=== PATIENT | female | born 1945 | race Caucasian/White ===

== ENCOUNTER → 2016-09-23 | Outpatient (CLI) | payer OTHER ==
[~2016-09-23] MED LIST: ALBUTEROL17 GM; ALLEGRA PO; ATIVAN PO; BENEFIBER; BENTYL20 MG PO; CELEXA PO; CIPRO PO; CITALOPRAM HBR40 MG PO; CLARITIN10 M2 PO; CLARITIN10 MG PO; DICYCLOMINE HCL20 MG PO; ESTRACE PO; ESTRACE42.5 GM; HALCION0.125 MG PO; LISINOPRIL PO; LISINOPRIL10 MG PO; LODINE PO; MOBIC PO; OPTIVE EYE DROPS5 ML; OYSTER CALCIUM500 MG PO; PERIDEX480 ML; PERIDEX480 ML PO; REQUIP0.25 MG PO; SULAR PO; TRAMADOL HCL50 M2; TRAMADOL HCL50 M2 PO; TRIAZOLAM0.25 MG PO; ULTRAM PO; VITAMIN C PO; VITAMIN D; VITAMIN D250000 UNIT PO; VITAMIN D400 UNI2; VITAMIN D50000 UNIT PO; ZANTAC PO; ZANTAC300 MG PO; [UNRECOGNIZED DRUG - OTHER]
--- NOTE | ~2016-09-23 | CT57 ---
[facility] A Service of [facility] & [facility] RADIOLOGY TEXT RESULTS PATIENT: ABRAHAM MILLS LOCATION: [facility] : 44 UNIT #: [id number] AGE: [address]: Surya Pandya MD SEX: F ORDER DR: [id number] [facility] [address] [place], [place] [address] [id number] O MR#: [id number] Acc #: [id number] NAME: ABRAHAM MILLS. : 1945 SEX: F STUDY DATE/TIME: 09/23/2016 10:34 UNIT: [facility] ROOM: STUDY DESCRIPTION: CT Chest Wo Cont Attending Physician: Surya Pandya M.D. Referring Physician: Suray Pandya M.D. Ordering Physician: Surya Pandya M.D. Primary Care Physician: Surya Pandya M.D. MEDICAL IMAGING REPORT This report is preliminary unless electronic signature is present EXAM High-resolution chest CT HISTORY Abnormal chest radiograph performed at the doctor's office on September 02, 2016 which reportedly showed a left lower lobe density. TECHNIQUE Axial CT imaging was obtained through the thorax per recent high-resolution protocol. This CT exam was performed with one or more of the following radiation dose reduction techniques: automatic exposure control, adjustment of mA and/or kV according to patient size, and iterative reconstruction. FINDINGS This patient has background emphysematous changes. There are areas of consolidation identified within the lung bases bilaterally which are favored to represent biapical scarring. On the left, this measures up to 1.4 cm and on the right, this measures up to about 2.4 cm. Some additional areas of nodularity seen more inferiorly within the right upper lobe. Single largest area measures up to about to 7 mm in size. There is some pleural-based scarring identified within the left lower lobe superior segment. There is some consolidation identified within the right middle lobe and lingula. There are also some tree-in-bud infiltrates, finding is nonspecific but can be seen in the setting of processes, such as atypical microbacterial infection. Additional patchy areas of consolidation are seen within the right lower lobe, again this may simply reflect some additional scarring. Patient has evidence of prior granulomatous disease. There is no evidence of air trapping, and certainly no evidence of chronic interstitial lung disease. [facility] A Service of [facility] RADIOLOGY TEXT RESULTS PATIENT: ABRAHAM MILLS LOCATION: [facility] : 43 UNIT #: [id number] AGE: [address]: Surya Pandya MD SEX: F ORDER DR: Thyroid gland appears unremarkable, trachea and esophagus are within normal limits. There is no pleural or pericardial effusion. Thoracic aorta measures within normal size limits. Main pulmonary artery also measures within normal size and there are coronary artery calcifications. There is a prominent subcarinal lymph node. Precarinal lymph node measuring up to about 9 mm in short-axis dimensions. Remainder of the mediastinal lymph nodes really do not appear pathologically enlarged. Images through the upper abdomen demonstrate changes of prior cholecystectomy. I do not see any aggressive osseous abnormalities. There are erosive changes seen within the upper lumbar spine. IMPRESSION 1. Background emphysematous changes without convincing evidence of chronic interstitial lung disease. 2. Patient reportedly had a left lower lobe density on recent chest radiograph at her primary care physician's office. This is not clearly identified on this study. Patient does have patchy areas of consolidation at the lung apices bilaterally, as well as within the right lower lobe and the within the right middle lobe and lingula. I suspect these reflect a combination of chronic scarring, as well as perhaps some superimposed infectious or inflammatory infiltrates. However, given background emphysematous changes, I suggest short-term CT followup in 3 months. There is also mildly prominent precarinal lymph node which can be reassessed at that time. The remainder of mediastinal lymph nodes again really do not appear pathologically enlarged. Please see the body of the report for any other additional incidental findings. Dictated by... Octavia Foley M.D. THIS IS AN ELECTRONICALLY VERIFIED REPORT Octavia Foley M.D. at 09/24/2016 8:17 AM AFF/pcl TD: 09/23/2016 20:25 JOB #: [id number] MEDICAL IMAGING REPORT Page 1 of 1 COPY
--- NOTE | ~2016-09-23 | MR18 ---
[facility] A Service of [facility] RADIOLOGY TEXT RESULTS PATIENT: ABRAHAM MILLS LOCATION: [facility] : 43 UNIT #: [id number] AGE: [address]: Surya Pandya MD SEX: F ORDER DR: [id number] [facility] [address] [place], [place] [address] [id number] O MR#: [id number] Acc #: [id number] NAME: ABRAHAM MILLS : 1945 SEX: F STUDY DATE/TIME: 09/23/2016 8:15 UNIT: [facility] ROOM: STUDY DESCRIPTION: MR Brain Wo Contrast Attending Physician: Surya Pandya M.D. Referring Physician: Surya Pandya M.D. Ordering Physician: Surya Pandya M.D. Primary Care Physician: Surya Pandya M.D. MRI CENTER REPORT This report is preliminary unless electronic signature is present. EXAM MRI of the brain without contrast dated 09/23/2016. COMPARISON STUDIES None HISTORY Syncope episodes x2 between December to February 2016. The episodes lasted for about 16 minutes each time. None since then. History of falls when having syncope last year. TECHNIQUE Multisequence, multiplanar imaging of the brain was obtained without contrast as per the request. FINDINGS Multiple hyperintense T2 signal lesions are scattered in the brain involving the periventricular white matter, subcortical white matter, laney. No acute stroke, space-occupying intracranial mass, mass effect, midline shift, or hydrocephalus. Thick slices through the sella with the pituitary gland, pineal region are unremarkable. Mild degenerative changes are noted in the cervical spine, relatively worse at C4-5. It is incompletely characterized on the current brain study. Vascular flow voids of the major cerebral arteries and dural venous sinuses are not obstructed on this thicker slices. S-shaped nasal septal deviation is seen. Status post bilateral cataract surgery. Paranasal sinuses are relatively well aerated. IMPRESSION Nonspecific hyperintense T2 signal lesions are noted in the brain involving the white matter and laney. They are likely related to chronic [id number]-[id number] ischemic change based on age and statistics. [facility] Service of [facility] RADIOLOGY TEXT RESULTS PATIENT: ABRAHAM MILLS LOCATION: [facility] : 43 UNIT #: [id number] AGE: [address]: Surya aPndya MD SEX: F ORDER DR: Dictated by... Hugo Lan M.D. THIS IS AN ELECTRONICALLY VERIFIED REPORT Hugo Lan M.D. at 09/23/2016 3:19 PM CPR/tmw TD: 09/23/2016 09:28 JOB #: [id number] MRI CENTER REPORT Page 1 of 1 COPY
--- NOTE | ~2016-09-23 | US37 ---
[facility] A Service of [facility] RADIOLOGY TEXT RESULTS PATIENT: ABRAHAM MILLS [facility] : 44 UNIT #: [id number] AGE: [address]: Surya Pandya MD SEX: F ORDER DR: [id number] [facility] [address] [place], [place] [address] [id number] O MR#: [id number] Acc #: [id number] NAME: ABRAHAM MILLS. : 1945 SEX: F STUDY DATE/TIME: 09/23/2016 9:23 UNIT: [facility] ROOM: STUDY DESCRIPTION: US Carotid W/Doppler Bilateral Attending Physician: Surya Pandya M.D. Referring Physician: Surya Pandya M.D. Ordering Physician: Surya Pandya M.D. Primary Care Physician: Surya Pandya M.D. MEDICAL IMAGING REPORT This report is preliminary unless electronic signature is present EXAM Carotid Doppler. DATE OF STUDY 09/23/2016 PROCEDURE Pandya-scale imaging, color-Doppler flow imaging, Doppler waveform analysis. HISTORY Episodes of syncope since March 11, 2015. Right monocular blurred vision for 1 month. PROCEDURE Pandya-scale imaging, color-Doppler flow imaging and Doppler waveform analysis. FINDINGS On the right, there is mild pandya-scale evidence of plaque in the carotid bulb. There is antegrade flow in the common and internal and external carotid and vertebral artery. Right internal carotid peak systolic velocity is 1.08 m/sec with a brisk systolic upstroke and moderate spectral broadening. On the left, there is some pandya-scale identifiable plaque, though minimal, and antegrade flow is seen in the common internal and external carotid and vertebral arteries. Left internal carotid peak systolic velocity is 1.14 m/sec with a brisk systolic upstroke and moderate spectral broadening. IMPRESSION Minimal pandya-scale evidence of atherosclerotic plaque. Velocities and waveforms suggest less than 50% stenosis in both internal carotids by NASCET criteria. [facility] A Service of [facility] RADIOLOGY TEXT RESULTS PATIENT: ABRAHAM MILLS [facility] : 44 UNIT #: [id number] AGE: [address]: Surya Pandya MD SEX: F ORDER DR: Antegrade flow in both external carotid and vertebral arteries. Dictated by... Michael Pemberton M.D. THIS IS AN ELECTRONICALLY VERIFIED REPORT Michael Pemberton M.D. at 09/27/2016 10:36 AM ALEXANDER/deysi TD: 09/23/2016 16:01 JOB #: [id number] MEDICAL IMAGING REPORT Page 1 of 1 COPY
--- NOTE | ~2016-09-23 | HM ---
Unit #: [id number] #: [id number] Patient: ABRAHAM MILLS [id number] [address] [address] [id number] O MR#: [id number] NAME: ABRAHAM MILLS : 1945 SEX: F STUDY DATE/TIME: 09/24/2016 UNIT: [facility] ROOM: STUDY DESCRIPTION: Attending Physician: Surya Pandya M.D. Referring Physician: Surya Pandya M.D. Primary Care Physician: Surya Pandya M.D. CARDIOLOGY REPORT EXAM 24-hour Holter monitor. DATE APPLIED 09/24/2016 DATE SCANNED 09/29/2016 READ BY [facility]. ORDERED BY Surya Pandya M.D. REASON FOR STUDY Syncope. FINDINGS Underlying rhythm is normal sinus rhythm with an average heart rate of 64 beats per minute, minimum heart rate of 42 beats per minute, and a maximum heart rate of 116 beats per minute. The minimum heart rate of 42 beats per minute is noted at 8:04 a.m. The maximum heart rate of 116 beats per minute is noted at 12:18 p.m. Patient had a 1.75 second pause noted at 9:16 a.m. Patient had 24 single multifocal premature ventricular complex noted. The patient had 1243 single premature atrial complex noted. The patient had 10 atrial couplets noted. Patient did not record any symptoms. CONCLUSION 1. Underlying rhythm is normal sinus rhythm with an average heart rate of 64 beats per minute, minimum heart rate of 42 beats per minute, and a maximum heart rate of 116 beats per minute. 2. No sustained atrial or ventricular arrhythmias noted. 3. No significant pauses noted. 4. Occasional single multifocal premature ventricular complex noted. 5. Occasional single premature atrial complex noted. 6. Patient did not record any symptoms. Dictated by..Arleen Oakes M.D. Unit #: [id number] #: [id number] Patient: ABRAHAM MILLS oRsy TD: 09/30/2016 12:01 JOB #: [id number] CARDIOLOGY REPORT Page 1 of 1 X Sabra Oakes MD <ELECTRONICALLY SIGNED> 12/11/16 1429 HOLTER MONITOR REPORT
== END | disposition home or self-care (01) ==
LOC: CEEG 07:26
DX: R55 Syncope and collapse (principal); R93.0 Abnormal findings on diagnostic imaging of skull and head, not elsewhere classified; J98.4 Other disorders of lung
CPT/HCPCS: 70551; 71250; 93225; 93226; 93880; 95816